=== PATIENT | female | born 1945 | race Caucasian/White ===

== ENCOUNTER 2022-05-15 07:30 | Inpatient (IN) ==
--- NOTE | 2022-05-07 14:50 | Anesthesiology Consultation ---
Date of Service May 07, 2022 Assessment & Plan (1) Encounter for pre-operative examination: - check CBC with diff, BMP and coags STAT am DOS. -medical clearance 02/11/2022: "...preoperative evaluation...mild COPD...just completing a steroid and oral antibiotic regimen for acute bronchitis...recent stress echo...no ischemic changes to wall motion...patient cleared as a low medical risk...follow-up with pulmonary tomorrow with regards to completing the 20 mg burst of steroids that she is on orally...low risk for CARLOS at this point..." -pulmonology 02/12/2022: "...COVID-19 approx. 3 months ago...asthma has been flared up ever since...planned back surgery 02/18/2022...completed prednisone taper and antibiotic course...feeling better...recovered from recent asthma flare up...continue Symbicort and Incruse...spirometry stable today with a mild obstructive ventilatory impairment and AGM does not show an oxygen deficit...not a contraindication for her planned back surgery 02/18/2022...chest ct findings...biapical pleural scarring...concerned about mild cardiomegaly and severe coronary artery calcifications..." Adilia at surgeon's office advised were obtaining cardiac clearance given severe coronary artery calcifications on chest CT. -cardiac pre-op letter 02/12/2022: "...low to moderate risk. NL stress echo 01/23/2022... Case previously discussed with Dr. Maya with updated notes as above including abnormal chest CT and he advised patient was acceptable risk to proceed from anesthesia standpoint. Surgery cancelled 02/18/22 per Adilia at surgeon's office due to patient concerns. - COVID screening: Per hematology supervisor on 05/07/2022: Travel screen negative, no known COVID-19 positive contacts or current COVID-19 related symptoms in past 2 weeks. Pt vaccinated. Surgeon arranging preop COVID testing, scheduled 05/13/2022. Awaiting results. Chart Review Chart Review: Acceptable Risk for Surgery and Patient NOT seen in Pre Admission Testing History Surgery Operation Date: 05/15/22 10:05 Proposed Procedures p L4-L5 Decompression Fusion, Spinal Cord Monitoring - Boby Mcdaniel DO Height/Weight Height: 5 ft Weight: 62.596 kg Allergies Allergy/AdvReac Type Severity Reaction Status Date / Time morphine Allergy Unknown IN ANOTHER Verified 05/07/22 13:22 WORLD cefuroxime [From Ceftin] AdvReac Unknown DIARRHEA , Verified 05/07/22 13:22 NAUSEA moxifloxacin [From Avelox] AdvReac Unknown upset Verified 05/07/22 13:22 stomach/diarrhea Medications Home Medications Medication Instructions Recorded Confirmed Last Taken albuterol sulfate 2.5 mg INHALATION Q4H PRN 02/20/21 05/07/22 Unknown albuterol sulfate 90 mcg/actuation 2 puff INHALATION Q6H PRN 02/20/21 05/07/22 Unknown aerosol inhaler alendronate 70 mg tablet 70 mg PO WK tab 02/20/21 05/07/22 Unknown benzonatate 100 mg capsule 100 mg PO BID PRN 02/20/21 05/07/22 Unknown cholecalciferol (vitamin D3) 25 25 mcg PO QAM 02/20/21 05/07/22 Unknown mcg (1,000 unit) capsule cyanocobalamin (vitamin B-12) 1,000 mcg PO QAM 02/20/21 05/07/22 Unknown 1,000 mcg capsule zzhwwmxjcvsu-cgmhgtnx-apalqm tablet 1 tab PO QAM 02/20/21 05/07/22 Unknown pantoprazole 40 mg tablet,delayed 40 mg PO HS 02/20/21 05/07/22 Unknown release simvastatin 20 mg tablet 20 mg PO HS 02/20/21 05/07/22 Unknown sucralfate 1 gram tablet (Carafate) 1 g PO QID PRN tab 02/20/21 05/07/22 Unknown acetaminophen 500 mg tablet 1,000 mg PO Q6H PRN 02/01/22 05/07/22 Unknown fluticasone fur. 100 mcg-umeclid 1 inh INHALATION QAM 05/07/22 05/07/22 Unknown 62.5 mcg-vilant 25 mcg inhalat.powder (Trelegy Ellipta) Past Medical History Medical History Asthma F/U DR IVA JARAMILLO LAST RESCUE INHALER USE THIS WEEK. Chronic cough. Recently completed steroid taper 2 weeks ago, Rx by pulm. Barretts esophagus HX-IMPROVED GERD (gastroesophageal reflux disease) controlled, stable per pt Hiatal hernia History of claustrophobia History of COVID-19 DX'D 11/21/21 [id number] [facility] [place]-PRODUCTIVE COUGH WITH GREEN PHLEGM, SOME BODY ACHES, FATIGUE-RECOVERED AT [id number] HAS A COUGH PER PT Hyperlipidemia Kidney stones X 3-PASSED ON OWN Late effect of fracture of thoracic vertebra Thoracic back pain Thoracic facet syndrome Thoracic spinal stenosis Past Family History Family History Brother Family history of diabetes mellitus Brother Family history of diabetes mellitus Other No known health problems Past Surgical History Surgical History History of anesthesia reaction SLOW TO WAKE UP/RAPID HEART RATE WITH HYSTERECTOMY History of colonoscopy History of esophagogastroduodenoscopy (EGD) History of hernia repair History of hysterectomy TOTAL History of kyphoplasty T9 Social History Smoking Status: Never smoker Do You Dip or Chew Tobacco: No Hx Alcohol Use: No Hx Substance Use: No Testing Chest X-Ray Date: 02/04/22 FINDINGS: No lines and tubes are seen. Calcified aortic knob is seen. The lungs are clear. No evidence of pleural effusion or pneumothorax. Degenerative changes are seen in the spine and cement arthroplasty is noted in the thoracic spine. IMPRESSION: No acute chest disease Echocardiogram Date: 07/12/21 EF 55% Normal LV sizes Mild mitral regurgitation Mild pulmonic regurgitation Small posterior pericardial effusion Stress Test Date: 01/23/22 Exercise MPHR 99% METS 7 Stress EKG and echo negative for ischemia No regional wall motion abnormalities Other Testing CT chest 02/12/22 Mild cardiomegaly Severe coronary artery calcifications
[~2022-05-15 07:30] MED LIST: ACETAMINOPHEN 500 MG TAB PO SCH; CeleBREX 200 MG CAP PO SCH; GABAPENTIN 300 MG CAP PO SCH; LR 15ML/HR IV SCH; ceFAZolin 1000MG 1,000 MG/7.5 ML SYR IV SCH
[2022-05-15] MEDS ORDERED: MIDAZOLAM HCL 1 MG/ML 2ML VIAL ONE (08:17)
[2022-05-15] MEDS ORDERED: KETAMINE 50 MG/5 ML SYRINGE ONE (08:17)
[2022-05-15] MEDS ORDERED: HYDROmorphone INJ 2 MG/ML SYR/VIAL ONE (08:17)
[2022-05-15 08:24] LABS: Basophils # (auto) 0.04 K/uL (0-0.2); Basophils % (auto) 0.7 %; Eosinophils # (auto) 0.21 K/uL (0-0.50); Eosinophils % (auto) 3.6 %; Hematocrit (blood only) 37.4 % (34.1-44.9); Hemoglobin 12.1 g/dl (12.0-16.0); Immature Granulocytes # (auto) 0.02 K/uL (0.00-0.02); Immature Granulocytes % (auto) 0.3 %; Lymphocytes # (auto) 1.29 K/uL (1.2-3.4); Lymphocytes % (auto) 21.9 %; Mean Corpuscular Hemoglobin 30.3 pg (25.0-34.0); Mean Corpuscular Hgb Conc 32.4 g/dL (32.0-36.0); Mean Corpuscular Volume 93.7 fL (80.0-100.0); Mean Platelet Volume 9.1 fL (9.4-12.3); Monocytes # (auto) 0.45 K/uL (0.24-0.82); Monocytes % (auto) 7.6 %; Neutrophils # (auto) 3.89 K/uL (1.4-6.5); Neutrophils % (auto) 65.9 %; Platelet Count 182 K/uL (130-400); RDW Coefficient of Variation 13.7 % (11.5-14.5); RDW Standard Deviation 47.2 fL (36.4-46.3); Red Blood Count 3.99 M/uL (3.93-5.22)
[2022-05-15 08:33] LABS: Partial Thromboplastin Ratio 0.9; Partial Thromboplastin Time 25.6 Seconds (21.0-31.0); Prothrombin Time 10.3 Seconds (9.0-12.0)
[2022-05-15 09:10] LABS: BUN Creatinine Ratio 10.4 (10-20); Calcium 8.7 mg/dl (8.5-10.1); Creatinine Clr Calc Pharmacy 26.2 ml/min; Est GFR (African American) 39.9 ml/min; Est GFR (Non-African American) 34.5 ml/min; Potassium 3.8 mmol/L (3.5-5.1)
[2022-05-15] MEDS ORDERED: ceFAZolin 330 MG/ML 1 GM VIAL ONE (09:19)
[2022-05-15] MEDS ORDERED: BUPIVACAINE/EPINEPHRINE 0.25% 1:200,000 30 ML VIAL ONE (09:19)
--- NOTE | 2022-05-15 09:20 | History & Physical Bridge Note ---
Date of Service May 15, 2022 History & Physical Bridge Note I have examined the patient, reviewed the History & Physical and in the interval since the performance of the History & Physical I have noted the following changes of clinical significance: no changes noted
--- NOTE | 2022-05-15 09:21 | History & Physical Report ---
Date of Service May 15, 2022 Assessment & Plan (1) Neurogenic claudication due to lumbar spinal stenosis: Plan: L4-5 decompression and fusion History of Present Illness Chief Complaint: Back and leg pain Primary Care Provider: Yonis Cornell This is a 68-year-old female presents to clinic with back and leg pain. Failing course of nonoperative care she is here for surgical invention. Allergies Allergy/AdvReac Type Severity Reaction Status Date / Time morphine Allergy Unknown IN ANOTHER Verified 05/15/22 07:48 WORLD cefuroxime [From Ceftin] AdvReac Unknown DIARRHEA , Verified 05/15/22 07:48 NAUSEA moxifloxacin [From Avelox] AdvReac Unknown upset Verified 05/15/22 07:48 stomach/diarrhea Home Medications Medication Instructions Recorded Confirmed Type albuterol sulfate 2.5 mg inhalation Q4H PRN Wheezing 02/20/21 05/15/22 History albuterol sulfate 90 mcg/actuation 2 puff inhalation Q6H PRN Wheezing 02/20/21 05/07/22 History aerosol inhaler alendronate 70 mg tablet 70 mg PO WK 02/20/21 05/15/22 History benzonatate 100 mg capsule 100 mg PO BID PRN Cough 02/20/21 05/15/22 History cholecalciferol (vitamin D3) 25 25 mcg PO QAM 02/20/21 05/15/22 History mcg (1,000 unit) capsule cyanocobalamin (vitamin B-12) 1,000 mcg PO QAM 02/20/21 05/15/22 History 1,000 mcg capsule fxprfmdxdlmh-afnysbdn-bvgymd tablet 1 tab PO QAM 02/20/21 05/15/22 History pantoprazole 40 mg tablet,delayed 40 mg PO HS 02/20/21 05/15/22 History release simvastatin 20 mg tablet 20 mg PO HS 02/20/21 05/15/22 History sucralfate 1 gram tablet (Carafate) 1 g PO QID PRN Abdominal Pain 02/20/21 05/07/22 History acetaminophen 500 mg tablet 1,000 mg PO Q6H PRN Pain 02/01/22 05/15/22 History fluticasone fur. 100 mcg-umeclid 1 inh inhalation QAM 05/07/22 05/15/22 History 62.5 mcg-vilant 25 mcg inhalat.powder (Trelegy Ellipta) Past Med/Surg History Medical History Asthma F/U DR IVA JARAMILLO LAST RESCUE INHALER USE THIS WEEK. Chronic cough. Recently completed steroid taper 2 weeks ago, Rx by pulm. Barretts esophagus HX-IMPROVED GERD (gastroesophageal reflux disease) controlled, stable per pt Hiatal hernia History of claustrophobia History of COVID-19 DX'D 11/21/21 [id number] [facility] [place]-PRODUCTIVE COUGH WITH GREEN PHLEGM, SOME BODY ACHES, FATIGUE-RECOVERED AT [id number] HAS A COUGH PER PT Hyperlipidemia Kidney stones X 3-PASSED ON OWN Late effect of fracture of thoracic vertebra Thoracic back pain Thoracic facet syndrome Thoracic spinal stenosis Surgical History History of anesthesia reaction SLOW TO WAKE UP/RAPID HEART RATE WITH HYSTERECTOMY History of colonoscopy History of esophagogastroduodenoscopy (EGD) History of hernia repair History of hysterectomy TOTAL History of kyphoplasty T9 Family History Brother Family history of diabetes mellitus Brother Family history of diabetes mellitus Other No known health problems Social History (Updated 05/07/22 @ 13:41 by Stephania Strong RN) Smoking Status: Never smoker Second Hand Exposure: No; Do You Dip or Chew Tobacco: No; Hx Alcohol Use: No Hx Substance Use: No Preferred Language: Nigerien Communication Ability: Effective Tobacco Drier Operator Required: No Beliefs That Will Affect Care: None Current Living Situation: Family Current Living Situation Comment: 4 GRANDCHILDREN LIVE WITH PT current occupational status: retired Other Information That Helps Us Care for You: No Feels Safe at Home: Yes Safety Concerns: Feels Safe At This Time Assistive Devices: Brace/Splint/Immobilizer, Denture - Upper, Denture - Lower and Glasses Assistive Devices Comment: BACK BRACE PRN Physical Exam Physical Exam: Patient is alert and oriented Heart regular rhythm Lungs clear Results & Data Results & Data ([facility]) Vital Signs (Past 12 Hours) Vital Signs Temp Pulse Resp BP Pulse Ox O2 Del Method 05/15/22 07:52 36.7 C 83 20 136/56 L 100 Room Air
[2022-05-15] MEDS ORDERED: PROMETHAZINE HCL 6.25 MG in SODIUM CHLORIDE 0.9% 50 ML IV PRN (09:30)
[2022-05-15] MEDS ORDERED: HYDROmorphone INJ 1 MG/ML SYRINGE IV PRN ×2 (09:30→13:35)
[2022-05-15] MEDS ORDERED: ONDANSETRON INJ 2 MG/ML 2 ML VIAL IV PRN ×2 (09:30→13:35)
[2022-05-15] MEDS ORDERED: ATROPINE SULFATE 0.1 MG/ML 10ML SYR IV PRN (09:30)
[2022-05-15] MEDS ORDERED: PROPOFOL IV EMULSION 10 MG/ML 20 ML VIAL IV ONE (10:15)
[2022-05-15] MEDS ORDERED: ONDANSETRON INJ 2 MG/ML 2 ML VIAL ONE (10:15)
[2022-05-15] MEDS ORDERED: DEXAMETHASONE SOD INJ 4 MG/ML VIAL ONE (10:15)
[2022-05-15] MEDS ORDERED: ROCURONIUM BROMIDE 10 MG/ML 5 ML VIAL IV ONE (10:15)
[2022-05-15] MEDS ORDERED: GLYCOPYRROLATE 0.2 MG/ML VIAL ONE (10:15)
[2022-05-15] MEDS ORDERED: LIDOCAINE 2% MPF LOCAL 5 ML VIAL INFIL ONE (10:15)
[2022-05-15] MEDS ORDERED: KETOROLAC 30 MG/ML VIAL ONE (10:49)
[2022-05-15] MEDS ORDERED: NEOSTIGMINE METHYLSULFATE 1 MG/ML 10ML VIAL ONE (10:53)
[2022-05-15] MEDS ORDERED: FLOSEAL HEMOSTATIC MATRIX 10ML TOP ONE (11:03)
--- NOTE | 2022-05-15 11:05 | Operative Report ---
Post Operative Report Pre & Post Diagnosis Operation Date: 05/15/22 09:35 Pre-Op Diagnosis: Spinal stenosis with spondylolisthesis and neurogenic claudication Post-Op Diagnosis: Same I identified the patient and participated in the time-out.: Yes Procedure Operation Date: 05/15/22 09:35 Actual Procedures #1 lumbar decompression bilateral medial facetectomies and foraminotomies L3-L4 L4-5. #2 posterior spinal fusion L4-5 per #3 placement posterior instrumentation L4-5. #4 interbody fusion L4-5. #5 placement of Spira 13 x 22 mm cage at L4-L5. #6 placement locally harvested morselized autograft in the posterior gutters. #7 placement of I factor and interbody space and infuse collagen sponge by master graft in the posterior lateral gutters. Surgeon Boby Mcdaniel, Gas Compressor Operator Domitila Verma Estimated Blood Loss 50 Findings Consistent with Post-Op Diagnosis Specimens None Indications This is a 77-year-old female who presents with above-mentioned diagnosis after failed course of nonoperative care she is here for surgical invention. Description of Procedure Patient is met with identified informed consent obtained. Patient was then taken to the operative suite underwent ablation placed in a prone position the Juan table top Mark frame. All bony prominences well-padded eyes inspected to ensure no external pressure placed upon them. This point the lumbar spine was prepped and draped no sterile fashion. Sharp dissection with assistance of Bovie cautery was formed down to and exposing the lamina transverse processes of L4-L5 bilaterally. From caudal to cephalad fashion complete laminectomy L4 partial laminectomy of L3 was performed including bilateral medial facetectomies and foraminotomies addressing severe spinal stenosis. Pedicle screws were then placed in L4-L5 bilaterally with assistance of fluoroscopy and appropriately sized david placed. By way of entrance foraminal approach and right a complete discectomy of L4-5 was performed endplates curetted to subcortical bleeding bone and a 13 x 22 mm spiral cage with I factor tapped in position. The rods then compressed locked in final position bilaterally. The transverse processes of L4-5 burred to subcortical bleeding bone. Infuse collagen sponge master graft local autograft was placed in posterior gutters. 15 round ARIK drain inserted. The incision was then closed with 1 Vicryl the fascia 2-0 Vicryl subcutaneously and 4 Monocryl for final skin closure. Steri-Strip sterile dressings placed. Patient waken taken PACU stable condition. Please note spinal cord monitoring was utilized at the procedure no changes noted. Lastly Domitila Verma was present out the entire procedure involved the patient positioning complex portions of the surgery and fascial closure. I attest to the content of the Intraoperative Record and any orders documented therein. Any exceptions are noted below.
--- NOTE | 2022-05-15 11:41 | Fluoroscopy Report ---
FL lumbar spine 2-3V CLINICAL HISTORY: L4-L5 DECOMPRESSION TECHNIQUE: 2 views were obtained with the C-arm in the OR with the above procedure. Total fluoroscopy time was 16.4 seconds. Total skin dose was 7.0 mGy. Comparison: None available at the time of this dictation. FINDINGS/IMPRESSION: Intraoperative images were obtained of L4-L5 decompression and fusion. Please correlate with intraoperative fluoroscopy and operative report. ACT 112: Negative or not required by law. Electronically signed by: Mike Gonzalez M.D. 05/15/2022 11:39 AM
--- NOTE | 2022-05-15 13:04 | Anesthesiology Progress Note ---
Date of Service May 15, 2022 Anesthesia Post Procedure Vital Signs Vital Signs: Temp Pulse Pulse Resp BP Pulse Ox O2 Del Method 05/15/22 12:55 67 10 L 137/52 L 100 Nasal Cannula 05/15/22 11:35 71 11 L 101/40 L 99 Oxymask 05/15/22 12:45 70 8 L 140/53 L 99 Nasal Cannula 05/15/22 12:35 36.5 C 76 12 144/62 H 98 Nasal Cannula 05/15/22 12:25 67 16 156/67 H 97 Nasal Cannula 05/15/22 12:15 79 15 153/63 H 100 Oxymask 05/15/22 12:05 81 12 146/78 H 98 Oxymask 05/15/22 11:55 36.5 C 70 11 L 109/48 L 100 Oxymask 05/15/22 11:45 70 12 107/48 L 100 Oxymask 05/15/22 11:25 70 12 99/46 L 99 Oxymask 05/15/22 11:19 36.3 C L 76 23 111/41 L 99 Oxymask 05/15/22 07:52 36.7 C 83 20 136/56 L 100 Room Air O2 Flow Rate 05/15/22 12:55 2 05/15/22 11:35 8 05/15/22 12:45 2 05/15/22 12:35 2 05/15/22 12:25 2 05/15/22 12:15 5 05/15/22 12:05 5 05/15/22 11:55 8 05/15/22 11:45 8 05/15/22 11:25 8 05/15/22 11:19 8 05/15/22 07:52 Pain Intensity Bilateral Back: Pain Intensity: 7 Transfer of Care Handoff Completed per policy Notes Mental Status: alert / awake / arousable Patient Amnestic to Procedure: Yes Nausea / Vomiting: adequately controlled Pain: adequately controlled Airway Patency, RR, SpO2: stable & adequate BP & HR: stable & adequate Hydration State: stable & adequate Anesthetic Complications: no major complications apparent
[2022-05-15] MEDS ORDERED: ALBUTEROL HFA 8 GM INHALER INH PRN (13:35)
[2022-05-15] MEDS ORDERED: traMADol HCL 50 MG TABLET PO PRN (13:35)
[2022-05-15] MEDS ORDERED: LORazepam 0.5 MG in SYRINGE 0.25 ML IV PRN (13:35)
[2022-05-15] MEDS ORDERED: LORazepam 0.5 MG TAB PO PRN (13:35)
[2022-05-15] MEDS ORDERED: FAMOTIDINE 20 MG TAB PO PRN (13:35)
[2022-05-15] MEDS ORDERED: NALOXONE HCL 0.4 MG/1 ML VIAL/CARP IV PRN (13:35)
[2022-05-15] MEDS ORDERED: SUCRALFATE 1 GM TAB PO PRN (13:35)
[2022-05-15] MEDS ORDERED: MAGNESIUM HYDROXIDE SUSP 30 ML UDC PO PRN (13:35)
[2022-05-15] MEDS ORDERED: bisacodyL 10 MG SUPP PR PRN (13:35)
[2022-05-15] MEDS ORDERED: hydrOXYzine HCl 25 MG TAB PO PRN (13:35)
[2022-05-15] MEDS ORDERED: BENZONATATE 100 MG CAPSULE PO PRN (13:35)
[2022-05-15] MEDS ORDERED: SOD PHOSPHATE/SOD BIPHOSPHATE ENEMA 132 ML BTL PR PRN (13:35)
[2022-05-15] MEDS ORDERED: ONDANSETRON 4 MG OD TAB PO PRN (13:35)
[2022-05-15] MEDS ORDERED: ALUMINUM/MAGNESIUM SUSP 30 ML UDC PO PRN (13:35)
[2022-05-15] MEDS ORDERED: HYDROmorphone INJ 0.5 MG/0.5 ML SYR IV PRN (13:35)
[2022-05-15] MEDS ORDERED: PROMETHAZINE HCL 12.5 MG in SODIUM CHLORIDE 0.9% 50 ML IV PRN (13:35)
[2022-05-15] MEDS ORDERED: diphenhydrAMINE Capsule 25 MG CAP PO PRN (13:35)
[2022-05-15] MEDS ORDERED: METOCLOPRAMIDE HCL INJ 5 MG/ML 2 ML VIAL IV PRN (13:35)
[2022-05-15] MEDS ORDERED: oxyCODONE HCL IR 5 MG TAB (IMMEDIATE RELEASE) PO PRN (13:35)
--- NOTE | 2022-05-15 13:49 | Consultation ---
Date of Consultation May 15, 2022 Assessment & Plan (1) Status post lumbar surgery: (2) Neurogenic claudication due to lumbar spinal stenosis: Post op day# 0 S/P L3-L5 decompression, L4-L5 fusion by Dr Violeta IRBY#50ml -pain management per ortho -wound management per ortho -PT/OT as appropriate -DVT prophylaxis per ortho -incentive spirometry -monitor H&H for acute blood loss anemia; pre-op Hgb: 12 (3) Asthma: No acute exacerbation -Follows with pulmonology in [place] -Continue home inhalers -Albuterol neb prn (4) Hyperlipidemia: -Continue simvastatin (5) Barretts esophagus: (6) GERD (gastroesophageal reflux disease): -Continue PPI (7) Renal insufficiency: 05/15/22 pre-op Cr: 1.44. Unknown prior baseline -Monitor renal functions, avoid nephrotoxic agents when possible DVT Prophylaxis -SCDs per ortho Disposition per primary service Follows with Dr Yonis Cornell for routine care Pt was seen and care coordinated with Dr Livingston. See addendum Thank you for this consultation. We will follow the patient with you during their hospital stay. You can reach a member of the [facility]ist Team 19/05 via [employer] Supervising Physician Co-Signing Physician Notes This is an attending cosign note for full reports and documentation please see the full dictation by JANAY following is a synopsis. Patient is S/P L3-L5 decompression, L4-L5 fusion seen at bedside with patient's daughter. Patient alert oriented somnolent fully arousable. Answering questions appropriately. Head atraumatic chest largely clear abdomen soft mildly obese. No similar current complaints of pain mildly nauseous. Received antiemetic. Pain control DVT prophylaxis as per the primary team. Continue home medication for asthma. History of Present Illness Requesting Physician: Dr Mcdaniel Reason for Consultation: Post op medical management Attending Physician: Boby Mcdaniel, DO History of Present Illness Patient is 77 y/o F with PMH asthma, HLD, Diego's esphogus, GERD seen in medical consultation s/p L3-L5 decompression and L4-L5 fusion today by Dr Mcdaniel. Post op patient still sleepy and complaining of nausea. Just medicated with anti-emetic. Denies vomiting or abdominal pain. Denies any back pain or extremity pain currently. Typically uses albuterol a couple of times a month. Reports chronic cough. Does not use oxygen or CPAP. Denies fever/chills, diaphoresis, diarrhea, constipation, MCLEAN, dizziness, syncope, vision changes, neck pain, CP, SOB, sore throat, choking, otalgia, rhinorrhea, abdominal pain, paresthesias, weakness, extremity edema, rashes, urinary symptoms. Allergies Allergy/AdvReac Type Severity Reaction Status Date / Time morphine Allergy Unknown IN ANOTHER Verified 05/15/22 07:48 WORLD cefuroxime [From Ceftin] AdvReac Unknown DIARRHEA , Verified 05/15/22 07:48 NAUSEA moxifloxacin [From Avelox] AdvReac Unknown upset Verified 05/15/22 07:48 stomach/diarrhea Home Medications Medication Instructions Recorded Confirmed Type albuterol sulfate 2.5 mg inhalation Q4H PRN Wheezing 02/20/21 05/15/22 History albuterol sulfate 90 mcg/actuation 2 puff inhalation Q6H PRN Wheezing 02/20/21 05/15/22 History aerosol inhaler alendronate 70 mg tablet 70 mg PO WK 02/20/21 05/15/22 History benzonatate 100 mg capsule 100 mg PO BID PRN Cough 02/20/21 05/15/22 History cholecalciferol (vitamin D3) 25 25 mcg PO QAM 02/20/21 05/15/22 History mcg (1,000 unit) capsule cyanocobalamin (vitamin B-12) 1,000 mcg PO QAM 02/20/21 05/15/22 History 1,000 mcg capsule tciojmyeavyf-gezbvqza-xdyske tablet 1 tab PO QAM 02/20/21 05/15/22 History pantoprazole 40 mg tablet,delayed 40 mg PO HS 02/20/21 05/15/22 History release simvastatin 20 mg tablet 20 mg PO HS 02/20/21 05/15/22 History sucralfate 1 gram tablet (Carafate) 1 g PO QID PRN Abdominal Pain 02/20/21 05/15/22 History acetaminophen 500 mg tablet 1,000 mg PO Q6H PRN Pain 02/01/22 05/15/22 History fluticasone fur. 100 mcg-umeclid 1 inh inhalation QAM 05/07/22 05/15/22 History 62.5 mcg-vilant 25 mcg inhalat.powder (Trelegy Ellipta) Patient History Medical History (Updated 05/15/22 @ 14:28 by Fiordaliza Garcia PA-C) Asthma F/U DR IVA JARAMILLO LAST RESCUE INHALER USE THIS WEEK. Chronic cough. Recently completed steroid taper 2 weeks ago, Rx by pulm. Barretts esophagus HX-IMPROVED GERD (gastroesophageal reflux disease) controlled, stable per pt Hiatal hernia History of claustrophobia History of COVID-19 DX'D 11/21/21 [id number] CARE [place]-PRODUCTIVE COUGH WITH GREEN PHLEGM, SOME BODY ACHES, FATIGUE-RECOVERED AT [id number] HAS A COUGH PER PT Hyperlipidemia Kidney stones X 3-PASSED ON OWN Late effect of fracture of thoracic vertebra Thoracic back pain Thoracic facet syndrome Thoracic spinal stenosis Surgical History (Updated 05/15/22 @ 14:28 by Fiordaliza Garcia PA-C) History of anesthesia reaction SLOW TO WAKE UP/RAPID HEART RATE WITH HYSTERECTOMY History of colonoscopy History of esophagogastroduodenoscopy (EGD) History of hernia repair History of hysterectomy TOTAL History of kyphoplasty T9 Family History Brother Family history of diabetes mellitus Brother Family history of diabetes mellitus Other No known health problems Social History Smoking Status: Never smoker Second Hand Exposure: No; Do You Dip or Chew Tobacco: No; Hx Alcohol Use: No Hx Substance Use: No Preferred Language: Argentine Communication Ability: Effective Camp Nurse Required: No Beliefs That Will Affect Care: None Current Living Situation: Family Current Living Situation Comment: 4 GRANDCHILDREN LIVE WITH PT current occupational status: retired Other Information That Helps Us Care for You: No Feels Safe at Home: Yes Safety Concerns: Feels Safe At This Time Assistive Devices: Brace/Splint/Immobilizer, Denture - Upper, Denture - Lower and Glasses Assistive Devices Comment: BACK BRACE PRN Review of Systems Review of Systems: All systems reviewed & are unremarkable except as noted in HPI & below Physical Exam Physical Exam: General: no distress, WDWN Head: normocephalic, atraumatic Eyes: conjunctiva non-injected, anicteric ENT: normal inspection external ears, nose, mucous membranes moist Neck: supple, trachea midline Lungs: clear, no respiratory distress, no wheezing/rhonchi/rales CV: RRR, no murmur, no pretibial edema Abd: normal BS, soft, non-tender Back: surgical dressing dry intact, ARIK drain in place with small amount of serosanguineous drainage Ext: no cyanosis, no calf tenderness; pedal pushes and pulls intact bilaterally, sensation to light touch intact, distal pulses intact Neuro: Drowsy, awakens to voice, oriented x 3, no focal deficits noted, normal affect Skin: warm, dry Results & Data ([facility]) Vital Signs (Past 12 Hours) Vital Signs Temp Pulse Pulse Resp BP Pulse Ox O2 Del Method 05/15/22 13:05 36.4 C L 63 10 L 147/61 H 98 Nasal Cannula 05/15/22 12:55 67 10 L 137/52 L 100 Nasal Cannula 05/15/22 11:35 71 11 L 101/40 L 99 Oxymask 05/15/22 12:45 70 8 L 140/53 L 99 Nasal Cannula 05/15/22 12:35 36.5 C 76 12 144/62 H 98 Nasal Cannula 05/15/22 12:25 67 16 156/67 H 97 Nasal Cannula 05/15/22 12:15 79 15 153/63 H 100 Oxymask 05/15/22 12:05 81 12 146/78 H 98 Oxymask 05/15/22 11:55 36.5 C 70 11 L 109/48 L 100 Oxymask 05/15/22 11:45 70 12 107/48 L 100 Oxymask 05/15/22 11:25 70 12 99/46 L 99 Oxymask 05/15/22 11:19 36.3 C L 76 23 111/41 L 99 Oxymask 05/15/22 07:52 36.7 C 83 20 136/56 L 100 Room Air O2 Flow Rate 05/15/22 13:05 2 05/15/22 12:55 2 05/15/22 11:35 8 05/15/22 12:45 2 05/15/22 12:35 2 05/15/22 12:25 2 05/15/22 12:15 5 05/15/22 12:05 5 05/15/22 11:55 8 05/15/22 11:45 8 05/15/22 11:25 8 05/15/22 11:19 8 05/15/22 07:52 Laboratory Results Short CBC 05/15/22 Range/Units 08:06 WBC 5.90 (4.8-10.8) K/ul Hgb 12.1 (12.0-16.0) g/dl Hct 37.4 (34.1-44.9) % Plt Count 182 (130-400) K/uL [facility] 05/15/22 08:06 Sodium 140 Potassium 3.8 Chloride 107 Carbon Dioxide 25 BUN 15 Creatinine 1.44 H Glucose 105 H Calcium 8.7
[2022-05-15] MEDS: SODIUM CHLORIDE 0.9% 1000ML 1,000 ML IV SCH (14:15)
[2022-05-15] MEDS ORDERED: ALBUTEROL 0.083% NEBU SOLN 3 ML VIAL NEB PRN (14:30)
[2022-05-15] MEDS ORDERED: ACETAMINOPHEN 1,000 MG/100 ML VIAL IV PRN (16:00)
--- NOTE | 2022-05-15 16:47 | Electrocardiogram Report ---
Test Reason : Blood Pressure : / mmHG Vent. Rate : 083 BPM Atrial Rate : 083 BPM P-R Int : 164 ms QRS Dur : 074 ms QT Int : 458 ms P-R-T Axes : 035 009 -08 degrees QTc Int : 538 ms Poor data quality, interpretation may be adversely affected Normal sinus rhythm Low voltage QRS Prolonged QT Abnormal ECG No previous ECGs available Confirmed by Gus Stein ([id number]) on 05/15/2022 4:47:35 PM Referred By: Boby Mcdaniel Confirmed By:Gus Stein
[2022-05-15] MEDS: CLINDAMYCIN 600 MG in DEXTROSE 5% 50 ML IV SCH (17:20)
[2022-05-15] MEDS: DOCUSATE SODIUM/SENNA 50/8.6MG TAB PO SCH (20:17)
[2022-05-15] MEDS: PANTOprazole 40 MG TAB PO SCH (20:17)
[2022-05-15] MEDS: SIMVASTATIN 20 MG TAB PO SCH (20:17)
[2022-05-16] MEDS: SODIUM CHLORIDE 0.9% 1000ML 1,000 ML IV SCH (00:18)
[2022-05-16] MEDS: CLINDAMYCIN 600 MG in DEXTROSE 5% 50 ML IV SCH (02:25)
[2022-05-16] MEDS: POLYETHYLENE (MIRALAX) 17 GM PACK PO SCH ×2 (06:02→12:37)
[2022-05-16] MEDS: UMECLIDINIUM/VILANTEROL 62.5/25MCG 7 PUFFS/INHALER INH SCH (08:31)
[2022-05-16] MEDS: FLUTICASONE FUROATE 100MCG 14 PUFFS/INHALER INH SCH (08:31)
[2022-05-16] MEDS: CYANOCOBALAMIN (B-12) 500 MCG TABLET PO SCH (08:32)
[2022-05-16] MEDS: CHOLECALCIFEROL 1,000 UNITS 25 MCG TAB PO SCH (08:32)
[2022-05-16] MEDS: CEROVITE ADV FORMULA TAB PO SCH (08:32)
[2022-05-16] MEDS: dexAMETHasone 6 MG in SYRINGE 0 ML IV SCH (08:32)
[2022-05-16] MEDS ORDERED: NON-FORMULARY MEDICATION (Fluticasone-Umeclidin-Vilanter [Trelegy Ellipta] 100-62.5-25 mcg INH SCH (09:00)
--- NOTE | 2022-05-16 09:19 | Orthopedic Progress Note ---
Date of Service May 16, 2022 Assessment & Plan (1) Neurogenic claudication due to lumbar spinal stenosis: Plan: We will begin physical therapy today monitor her ARIK output hopefully discharge home in the next few days. Admission and Anticipated Discharge Date Admission Date: May 15, 2022 Subjective Patient's back pain is controlled leg symptoms markedly improved Physical Exam Physical Exam: Patient is in bed. She is comfortable. Is good strength testing. Results & Data ([facility]) Vital Signs (Past 12 Hours) Vital Signs Temp Pulse Resp BP Pulse Ox O2 Del Method O2 Flow Rate 05/16/22 07:49 36.6 C 72 18 122/62 97 Room Air 05/16/22 04:00 36.4 C L 67 16 135/73 100 Nasal Cannula 2 05/15/22 23:38 52 L 05/15/22 22:48 36.4 C L 48 L 16 133/80 100 Room Air
[2022-05-16 09:41] LABS: Basophils # (auto) 0.01 K/uL (0-0.2); Basophils % (auto) 0.1 %; Eosinophils # (auto) 0.01 K/uL (0-0.50); Eosinophils % (auto) 0.1 %; Hematocrit (blood only) 33.4 % (34.1-44.9); Hemoglobin 10.7 g/dl (12.0-16.0); Immature Granulocytes # (auto) 0.04 K/uL (0.00-0.02); Immature Granulocytes % (auto) 0.5 %; Lymphocytes # (auto) 0.75 K/uL (1.2-3.4); Mean Corpuscular Hemoglobin 30.3 pg (25.0-34.0); Mean Corpuscular Volume 94.6 fL (80.0-100.0); Mean Platelet Volume 9.8 fL (9.4-12.3); Monocytes # (auto) 0.42 K/uL (0.24-0.82); Neutrophils # (auto) 7.09 K/uL (1.4-6.5); Neutrophils % (auto) 85.3 %; Platelet Count 163 K/uL (130-400); RDW Coefficient of Variation 13.4 % (11.5-14.5); Red Blood Count 3.53 M/uL (3.93-5.22); White Blood Count 8.32 K/ul (4.8-10.8)
[2022-05-16 10:17] LABS: BUN Creatinine Ratio 15.1 (10-20); Calcium 7.8 mg/dl (8.5-10.1); Creatinine Clr Calc Pharmacy 27.1 ml/min; Est GFR (African American) 41.7 ml/min; Potassium 4.5 mmol/L (3.5-5.1)
[2022-05-16] MEDS: ACETAMINOPHEN 500 MG TAB PO PRN (16:28)
--- NOTE | 2022-05-16 18:27 | Hospitalist Progress Note ---
Date of Service May 16, 2022 Assessment & Plan (1) Status post lumbar surgery: (2) Neurogenic claudication due to lumbar spinal stenosis: Plan: Post op day# 1 S/P L3-L5 decompression, L4-L5 fusion by Dr Mcdaniel -pain management per ortho -wound management per ortho -PT/OT as appropriate -DVT prophylaxis per ortho -incentive spirometry Acute blood loss anemia, postop vs. dilutional -pre-op Hgb: 12, now 10.7 -Expected, no need for blood transfusion -monitor H&H (3) Asthma: Plan: No acute exacerbation -Follows with pulmonology in [place] -Continue home inhalers -Albuterol neb prn (4) Hyperlipidemia: Plan: -Continue simvastatin (5) Barretts esophagus: (6) GERD (gastroesophageal reflux disease): Plan: -Continue PPI (7) Renal insufficiency: Plan: 05/15/22 pre-op Cr: 1.44. Unknown prior baseline -Monitor renal functions, avoid nephrotoxic agents when possible DVT Prophylaxis -SCDs per ortho Disposition per primary service Follows with Dr Yonis Cornell for routine care Thank you for this consultation. We will follow the patient with you during their hospital stay. You can reach a member of the [facility] 19/05 via [employer] Admission and Anticipated Discharge Date Admission Date: May 15, 2022 Subjective Patient seen s/p spinal surgery Currently laying in bed, in no acute distress Denies any fevers, chills, chest pain, shortness of breath, abdominal pain, nausea or vomiting Reports she has been walking in hallway without much difficulty Catheter was removed, and she has been voiding without difficulty. She also had a bowel movement Patient's daughter at the bedside Review of Systems Review of Systems: All systems reviewed & are unremarkable except as noted in Subjective Physical Exam Physical Exam: General: no distress, WDWN Head: normocephalic, atraumatic Eyes: conjunctiva non-injected, anicteric ENT: normal inspection external ears, nose, mucous membranes moist Neck: supple, trachea midline Lungs: clear, no respiratory distress, no wheezing/rhonchi/rales CV: RRR, no murmur, no pretibial edema Abd: normal BS, soft, non-tender Back: surgical dressing dry intact Ext: no calf tenderness; pedal pushes and pulls intact bilaterally, sensation to light touch intact, distal pulses intact Neuro: alert oriented x 3, no focal deficits noted, normal affect Skin: warm, dry Results & Data Results & Data ([facility]) Vital Signs (Past 12 Hours) Vital Signs Temp Pulse Resp BP Pulse Ox O2 Del Method 05/16/22 16:24 36.8 C 69 18 137/68 96 Room Air 05/16/22 13:14 36.8 C 83 18 126/75 97 Room Air 05/16/22 07:49 36.6 C 72 18 122/62 97 Room Air Laboratory Results 05/16/22 05/16/22 Range/Units 08:48 08:48 WBC 8.32 (4.8-10.8) K/ul RBC 3.53 L (3.93-5.22) M/uL Hgb 10.7 L (12.0-16.0) g/dl Hct 33.4 L (34.1-44.9) % MCV 94.6 (80.0-100.0) fL MCH 30.3 (25.0-34.0) pg MCHC 32.0 (32.0-36.0) g/dL RDW Std Deviation 46.0 (36.4-46.3) fL RDW Coeff of Moon 13.4 (11.5-14.5) % Plt Count 163 (130-400) K/uL MPV 9.8 (9.4-12.3) fL Immature Gran % (Auto) 0.5 % Neut % (Auto) 85.3 % Lymph % (Auto) 9.0 % Mclean % (Auto) 5.0 % Eos % (Auto) 0.1 % Baso % (Auto) 0.1 % Neut # (Auto) 7.09 H (1.4-6.5) K/uL Lymph # (Auto) 0.75 L (1.2-3.4) K/uL Mclean # (Auto) 0.42 (0.24-0.82) K/uL Eos # (Auto) 0.01 (0-0.50) K/uL Baso # (Auto) 0.01 (0-0.2) K/uL Immature Gran # (Auto) 0.04 H (0.00-0.02) K/uL Sodium 139 (136-145) mmol/L Potassium 4.5 (3.5-5.1) mmol/L Chloride 109 H (98-107) mmol/L Carbon Dioxide 22 (21-32) mmol/L Anion Gap 8 (3-11) BUN 21 (6-23) mg/dl Creatinine 1.39 H (0.6-1.2) mg/dl Est Cr Clr Drug Dosing 27.1 ml/min Est GFR ( Amer) 41.7 ml/min Est GFR (Non-Af Amer) 36.0 ml/min BUN/Creatinine Ratio 15.1 (10-20) Glucose 144 H (70-99(Fasting)) mg/dl Calcium 7.8 L (8.5-10.1) mg/dl Medications Administered Current Inpatient Medications Acetaminophen (Acetaminophen 500 Mg Tab) 1,000 mg PO Q8H PRN PRN Reason: MILD Pain Scale 1,2,3 & Pre PT Stop: 06/14/22 15:59 Last Admin: 05/16/22 16:28 Dose: 1,000 mg Al Hydrox/Mg Hydrox/Simethicone (Aluminum/Magnesium Susp 30 Ml Udc) 30 ml PO Q6H PRN PRN Reason: Dyspepsia Stop: 06/14/22 13:34 Albuterol (Albuterol Hfa 8 Gm Inhaler) 2 puffs INH Q6H PRN PRN Reason: Wheezing Stop: 06/14/22 13:34 Albuterol (Albuterol 0.083% Nebu Soln 3 Ml Vial) 2.5 mg NEB Q6R PRN; Protocol PRN Reason: Shortness Of Breath Or Wheezin Stop: 06/14/22 14:29 Benzonatate (Benzonatate 100 Mg Capsule) 100 mg PO BID PRN PRN Reason: Cough Stop: 06/14/22 13:34 Bisacodyl (Bisacodyl 10 Mg Supp) 10 mg DE DAILY PRN PRN Reason: Constipation Stop: 06/14/22 13:34 Cyanocobalamin (Cyanocobalamin (B-12) 500 Mcg Tablet) 1,000 mcg PO QAM KANU Stop: 06/15/22 08:59 Last Admin: 05/16/22 08:32 Dose: 1,000 mcg Diphenhydramine HCl (Diphenhydramine Capsule 25 Mg Cap) 25 mg PO Q6H PRN PRN Reason: Allergic Rhinitis/Insomnia Stop: 06/14/22 13:34 Famotidine (Famotidine 20 Mg Tab) 20 mg PO Q12H PRN PRN Reason: Dyspepsia Stop: 06/14/22 13:34 Fluticasone Furoate (Fluticasone Furoate 100mcg 14 Puffs/Inhaler) 1 puffs INH QAM KANU Stop: 06/15/22 08:59 Last Admin: 05/16/22 08:31 Dose: 1 puffs Hydromorphone HCl (Hydromorphone Inj 0.5 Mg/0.5 Ml Syr) 0.5 mg IV Q3H PRN PRN Reason: MODERATE Pain (Scale 4,5,6) & Pre PT Stop: 05/29/22 13:34 Hydromorphone HCl (Hydromorphone Inj 1 Mg/Ml Syringe) 1 mg IV Q3H PRN PRN Reason: SEVERE Pain (Scale 7,8,9,10) Stop: 05/29/22 13:34 Hydroxyzine HCl (Hydroxyzine Hcl 25 Mg Tab) 25 mg PO Q8H PRN PRN Reason: Anxiety Stop: 06/14/22 13:34 Promethazine HCl 12.5 mg/ (Sodium Chloride) 50.5 mls @ 202 mls/hr IV Q6H PRN PRN Reason: Nausea &/or Vomiting Stop: 06/14/22 13:34 Last Infusion: 05/15/22 17:01 Dose: Infused Lorazepam 0.5 mg/ Syringe 0.5 mls @ 2 mls/min IV Q8H PRN PRN Reason: Sedation/Anxiety Stop: 06/14/22 13:34 Dexamethasone 6 mg/ Syringe 1.5 mls @ 1 mls/min IV DAILY KANU Stop: 05/18/22 09:02 Last Admin: 05/16/22 08:32 Dose: 1 mls/min Lorazepam (Lorazepam 0.5 Mg Tab) 0.5 mg PO Q8H PRN PRN Reason: Sedation/Anxiety Stop: 06/14/22 13:34 Last Admin: 05/16/22 02:03 Dose: 0.5 mg Magnesium Hydroxide (Magnesium Hydroxide Susp 30 Ml Udc) 30 ml PO Q24H PRN PRN Reason: Constipation Stop: 06/14/22 13:34 Metoclopramide HCl (Metoclopramide Hcl Inj 5 Mg/Ml 2 Ml Vial) 10 mg IV Q6H PRN PRN Reason: Nausea &/or Vomiting Stop: 06/14/22 13:34 Multivitamins/Minerals (Cerovite Adv Formula Tab) 1 tab PO QAM KANU Stop: 06/15/22 08:59 Last Admin: 05/16/22 08:32 Dose: 1 tab Naloxone HCl (Naloxone Hcl 0.4 Mg/1 Ml Vial/Carp) 0.1 mg IV Q5M PRN PRN Reason: Oversedation/Resp depression Stop: 06/14/22 13:34 Ondansetron HCl (Ondansetron Inj 2 Mg/Ml 2 Ml Vial) 4 mg IV Q6H PRN PRN Reason: Nausea &/or Vomiting Stop: 06/14/22 13:34 Last Admin: 05/15/22 13:40 Dose: 4 mg Ondansetron HCl (Ondansetron 4 Mg Od Tab) 4 mg PO Q6H PRN PRN Reason: Nausea Stop: 06/14/22 13:34 Oxycodone HCl (Oxycodone Hcl Ir 5 Mg Tab (Immediate Release)) 5 - 10 mg PO Q4H PRN PRN Reason: Pain & Pre PT Stop: 05/29/22 13:34 Pantoprazole Sodium (Pantoprazole 40 Mg Tab) 40 mg PO [facility] Stop: 06/14/22 20:59 Last Admin: 05/15/22 20:17 Dose: 40 mg Senna/Docusate Sodium (Docusate Sodium/Senna 50/8.6mg Tab) 2 tab PO [facility] Stop: 06/14/22 20:59 Last Admin: 05/15/22 20:17 Dose: 2 tab Simvastatin (Simvastatin 20 Mg Tab) 20 mg PO [facility] Stop: 06/14/22 20:59 Last Admin: 05/15/22 20:17 Dose: 20 mg Sodium Biphosphate/Sodium Phosphate (Sod Phosphate/Sod Biphosphate Enema 132 Ml Btl) 132 ml DE ONE PRN PRN Reason: Constipation Stop: 06/14/22 13:34 Sucralfate (Sucralfate 1 Gm Tab) 1 gm PO QID PRN PRN Reason: Abdominal Pain Stop: 06/14/22 13:34 Tramadol HCl (Tramadol Hcl 50 Mg Tablet) 50 - 100 mg PO Q4H PRN PRN Reason: Moderate-Severe pain & Pre PT Stop: 06/14/22 13:34 Umeclidinium/Vilanterol (Umeclidinium/Vilanterol 62.5/25mcg 7 Puffs/Inhaler) 1 puffs INH QAM [facility] Stop: 06/15/22 08:59 Last Admin: 05/16/22 08:31 Dose: 1 puffs Vitamin D (Cholecalciferol 1,000 Units 25 Mcg Tab) 1,000 units PO QAM [facility] Stop: 06/15/22 08:59 Last Admin: 05/16/22 08:32 Dose: 1,000 units
[2022-05-16] MEDS: DOCUSATE SODIUM/SENNA 50/8.6MG TAB PO SCH (21:54)
[2022-05-16] MEDS: SIMVASTATIN 20 MG TAB PO SCH (21:55)
[2022-05-16] MEDS: PANTOprazole 40 MG TAB PO SCH (21:55)
--- NOTE | 2022-05-17 07:25 | Hospitalist Progress Note ---
Date of Service May 17, 2022 Assessment & Plan (1) Status post lumbar surgery: (2) Neurogenic claudication due to lumbar spinal stenosis: Plan: Post op day# 2 S/P L3-L5 decompression, L4-L5 fusion by Dr Mcdaniel -pain management per ortho -wound management per ortho -PT/OT as appropriate -DVT prophylaxis per ortho -incentive spirometry Acute blood loss anemia, postop vs. dilutional -pre-op Hgb: 12, now 10.5 (stable from yesterday 10.7) -Expected, no need for blood transfusion -monitor H&H (3) Asthma: Plan: No acute exacerbation -Follows with pulmonology in [place] -Continue home inhalers -Albuterol neb prn (4) Hyperlipidemia: Plan: -Continue simvastatin (5) Barretts esophagus: (6) GERD (gastroesophageal reflux disease): Plan: -Continue PPI (7) Renal insufficiency: Plan: 05/15/22 pre-op Cr: 1.44. Unknown prior baseline -Monitor renal functions, avoid nephrotoxic agents when possible - current Cr 1.23 DVT Prophylaxis -SCDs per ortho Disposition per primary service Follows with Dr Yonis Cornell for routine care Thank you for this consultation. We will follow the patient with you during their hospital stay. You can reach a [facility]05 via [employer] Admission and Anticipated Discharge Date Admission Date: May 15, 2022 Subjective Patient seen s/p spinal surgery Currently sitting up in chair, eating breakfast, in no acute distress Denies any fevers, chills, chest pain, shortness of breath, abdominal pain, nausea or vomiting Reports she has been walking in hallway without much difficulty Catheter was removed, and she has been voiding without difficulty. She also had a bowel movement Patient's daughter at the bedside Review of Systems Review of Systems: All systems reviewed & are unremarkable except as noted in Subjective Physical Exam Physical Exam: General: elderly F , in no distress, WDWN Head: normocephalic, atraumatic Eyes: conjunctiva non-injected, anicteric ENT: normal inspection external ears, nose, mucous membranes moist Neck: supple, trachea midline Lungs: clear, no respiratory distress, no wheezing/rhonchi/rales CV: RRR, no murmur, no pretibial edema Abd: normal BS, soft, non-tender Back: surgical dressing dry intact Ext: no calf tenderness; pedal pushes and pulls intact bilaterally, sensation to light touch intact, distal pulses intact Neuro: alert oriented x 3, no focal deficits noted, normal affect Skin: warm, dry Results & Data Results & Data ([facility]) Vital Signs (Past 12 Hours) Vital Signs Temp Pulse Resp BP Pulse Ox O2 Del Method 05/16/22 21:54 36.6 C 66 16 130/65 96 Room Air Laboratory Results 05/16/22 05/16/22 Range/Units 08:48 08:48 WBC 8.32 (4.8-10.8) K/ul RBC 3.53 L (3.93-5.22) M/uL Hgb 10.7 L (12.0-16.0) g/dl Hct 33.4 L (34.1-44.9) % MCV 94.6 (80.0-100.0) fL MCH 30.3 (25.0-34.0) pg MCHC 32.0 (32.0-36.0) g/dL RDW Std Deviation 46.0 (36.4-46.3) fL RDW Coeff of Moon 13.4 (11.5-14.5) % Plt Count 163 (130-400) K/uL MPV 9.8 (9.4-12.3) fL Immature Gran % (Auto) 0.5 % Neut % (Auto) 85.3 % Lymph % (Auto) 9.0 % Todd % (Auto) 5.0 % Eos % (Auto) 0.1 % Baso % (Auto) 0.1 % Neut # (Auto) 7.09 H (1.4-6.5) K/uL Lymph # (Auto) 0.75 L (1.2-3.4) K/uL Todd # (Auto) 0.42 (0.24-0.82) K/uL Eos # (Auto) 0.01 (0-0.50) K/uL Baso # (Auto) 0.01 (0-0.2) K/uL Immature Gran # (Auto) 0.04 H (0.00-0.02) K/uL Sodium 139 (136-145) mmol/L Potassium 4.5 (3.5-5.1) mmol/L Chloride 109 H (98-107) mmol/L Carbon Dioxide 22 (21-32) mmol/L Anion Gap 8 (3-11) BUN 21 (6-23) mg/dl Creatinine 1.39 H (0.6-1.2) mg/dl Est Cr Clr Drug Dosing 27.1 ml/min Est GFR ( Amer) 41.7 ml/min Est GFR (Non-Af Amer) 36.0 ml/min BUN/Creatinine Ratio 15.1 (10-20) Glucose 144 H (70-99(Fasting)) mg/dl Calcium 7.8 L (8.5-10.1) mg/dl Medications Administered Current Inpatient Medications Acetaminophen (Acetaminophen 500 Mg Tab) 1,000 mg PO Q8H PRN PRN Reason: MILD Pain Scale 1,2,3 & Pre PT Stop: 06/14/22 15:59 Last Admin: 05/16/22 16:28 Dose: 1,000 mg Al Hydrox/Mg Hydrox/Simethicone (Aluminum/Magnesium Susp 30 Ml Udc) 30 ml PO Q6H PRN PRN Reason: Dyspepsia Stop: 06/14/22 13:34 Albuterol (Albuterol Hfa 8 Gm Inhaler) 2 puffs INH Q6H PRN PRN Reason: Wheezing Stop: 06/14/22 13:34 Albuterol (Albuterol 0.083% Nebu Soln 3 Ml Vial) 2.5 mg NEB Q6R PRN; Protocol PRN Reason: Shortness Of Breath Or Wheezin Stop: 06/14/22 14:29 Benzonatate (Benzonatate 100 Mg Capsule) 100 mg PO BID PRN PRN Reason: Cough Stop: 06/14/22 13:34 Bisacodyl (Bisacodyl 10 Mg Supp) 10 mg MI DAILY PRN PRN Reason: Constipation Stop: 06/14/22 13:34 Cyanocobalamin (Cyanocobalamin (B-12) 500 Mcg Tablet) 1,000 mcg PO QAM [facility] Stop: 06/15/22 08:59 Last Admin: 05/16/22 08:32 Dose: 1,000 mcg Diphenhydramine HCl (Diphenhydramine Capsule 25 Mg Cap) 25 mg PO Q6H PRN PRN Reason: Allergic Rhinitis/Insomnia Stop: 06/14/22 13:34 Famotidine (Famotidine 20 Mg Tab) 20 mg PO Q12H PRN PRN Reason: Dyspepsia Stop: 06/14/22 13:34 Fluticasone Furoate (Fluticasone Furoate 100mcg 14 Puffs/Inhaler) 1 puffs INH QAM [facility] Stop: 06/15/22 08:59 Last Admin: 05/16/22 08:31 Dose: 1 puffs Hydromorphone HCl (Hydromorphone Inj 0.5 Mg/0.5 Ml Syr) 0.5 mg IV Q3H PRN PRN Reason: MODERATE Pain (Scale 4,5,6) & Pre PT Stop: 05/29/22 13:34 Hydromorphone HCl (Hydromorphone Inj 1 Mg/Ml Syringe) 1 mg IV Q3H PRN PRN Reason: SEVERE Pain (Scale 7,8,9,10) Stop: 05/29/22 13:34 Hydroxyzine HCl (Hydroxyzine Hcl 25 Mg Tab) 25 mg PO Q8H PRN PRN Reason: Anxiety Stop: 06/14/22 13:34 Promethazine HCl 12.5 mg/ (Sodium Chloride) 50.5 mls @ 202 mls/hr IV Q6H PRN PRN Reason: Nausea &/or Vomiting Stop: 06/14/22 13:34 Last Infusion: 05/15/22 17:01 Dose: Infused Lorazepam 0.5 mg/ Syringe 0.5 mls @ 2 mls/min IV Q8H PRN PRN Reason: Sedation/Anxiety Stop: 06/14/22 13:34 Dexamethasone 6 mg/ Syringe 1.5 mls @ 1 mls/min IV DAILY [facility] Stop: 05/18/22 09:02 Last Admin: 05/16/22 08:32 Dose: 1 mls/min Lorazepam (Lorazepam 0.5 Mg Tab) 0.5 mg PO Q8H PRN PRN Reason: Sedation/Anxiety Stop: 06/14/22 13:34 Last Admin: 05/16/22 02:03 Dose: 0.5 mg Magnesium Hydroxide (Magnesium Hydroxide Susp 30 Ml Udc) 30 ml PO Q24H PRN PRN Reason: Constipation Stop: 06/14/22 13:34 Metoclopramide HCl (Metoclopramide Hcl Inj 5 Mg/Ml 2 Ml Vial) 10 mg IV Q6H PRN PRN Reason: Nausea &/or Vomiting Stop: 06/14/22 13:34 Multivitamins/Minerals (Cerovite Adv Formula Tab) [facility] Stop: 06/15/22 08:59 Last Admin: 05/16/22 08:32 Dose: 1 tab Naloxone HCl (Naloxone Hcl 0.4 Mg/1 Ml Vial/Carp) 0.1 mg IV Q5M PRN PRN Reason: Oversedation/Resp depression Stop: 06/14/22 13:34 Ondansetron HCl (Ondansetron Inj 2 Mg/Ml 2 Ml Vial) 4 mg IV Q6H PRN PRN Reason: Nausea &/or Vomiting Stop: 06/14/22 13:34 Last Admin: 05/15/22 13:40 Dose: 4 mg Ondansetron HCl (Ondansetron 4 Mg Od Tab) 4 mg PO Q6H PRN PRN Reason: Nausea Stop: 06/14/22 13:34 Oxycodone HCl (Oxycodone Hcl Ir 5 Mg Tab (Immediate Release)) 5 - 10 mg PO Q4H PRN PRN Reason: Pain & Pre PT Stop: 05/29/22 13:34 Pantoprazole Sodium (Pantoprazole 40 Mg Tab) 40 mg PO [facility] Stop: 06/14/22 20:59 Last Admin: 05/16/22 21:55 Dose: 40 mg Senna/Docusate Sodium (Docusate Sodium/Senna 50/8.6mg Tab) 2 tab PO [facility] Stop: 06/14/22 20:59 Last Admin: 05/16/22 21:54 Dose: Not Given Simvastatin (Simvastatin 20 Mg Tab) 20 mg PO [facility] Stop: 06/14/22 20:59 Last Admin: 05/16/22 21:55 Dose: 20 mg Sodium Biphosphate/Sodium Phosphate (Sod Phosphate/Sod Biphosphate Enema 132 Ml Btl) 132 ml MI ONE PRN PRN Reason: Constipation Stop: 06/14/22 13:34 Sucralfate (Sucralfate 1 Gm Tab) 1 gm PO QID PRN PRN Reason: Abdominal Pain Stop: 06/14/22 13:34 Tramadol HCl (Tramadol Hcl 50 Mg Tablet) 50 - 100 mg PO Q4H PRN PRN Reason: Moderate-Severe pain & Pre PT Stop: 06/14/22 13:34 Umeclidinium/Vilanterol (Umeclidinium/Vilanterol 62.5/25mcg 7 Puffs/Inhaler) 1 puffs INH QAM [facility] Stop: 06/15/22 08:59 Last Admin: 05/16/22 08:31 Dose: 1 puffs Vitamin D (Cholecalciferol 1,000 Units 25 Mcg Tab) 1,000 units PO QAM [facility] Stop: 06/15/22 08:59 Last Admin: 05/16/22 08:32 Dose: 1,000 units
[2022-05-17 07:57] LABS: Hematocrit (blood only) 32.2 % (34.1-44.9); Hemoglobin 10.5 g/dl (12.0-16.0); Mean Corpuscular Hemoglobin 30.2 pg (25.0-34.0); Mean Corpuscular Hgb Conc 32.6 g/dL (32.0-36.0); Mean Corpuscular Volume 92.5 fL (80.0-100.0); Mean Platelet Volume 9.5 fL (9.4-12.3); Platelet Count 155 K/uL (130-400); RDW Coefficient of Variation 13.9 % (11.5-14.5); RDW Standard Deviation 46.8 fL (36.4-46.3); Red Blood Count 3.48 M/uL (3.93-5.22); White Blood Count 7.41 K/ul (4.8-10.8)
[2022-05-17 08:16] LABS: BUN Creatinine Ratio 17.9 (10-20); Calcium 8.1 mg/dl (8.5-10.1); Creatinine Clr Calc Pharmacy 30.6 ml/min; Est GFR (African American) 48.3 ml/min; Est GFR (Non-African American) 41.7 ml/min; Potassium 4.2 mmol/L (3.5-5.1)
[2022-05-17] MEDS: ACETAMINOPHEN 500 MG TAB PO PRN (09:05)
[2022-05-17] MEDS: dexAMETHasone 6 MG in SYRINGE 0 ML IV SCH (09:06)
[2022-05-17] MEDS: FLUTICASONE FUROATE 100MCG 14 PUFFS/INHALER INH SCH (09:08)
[2022-05-17] MEDS: CYANOCOBALAMIN (B-12) 500 MCG TABLET PO SCH (09:08)
[2022-05-17] MEDS: CHOLECALCIFEROL 1,000 UNITS 25 MCG TAB PO SCH (09:08)
[2022-05-17] MEDS: UMECLIDINIUM/VILANTEROL 62.5/25MCG 7 PUFFS/INHALER INH SCH (09:08)
[2022-05-17] MEDS: CEROVITE ADV FORMULA TAB PO SCH (09:08)
--- NOTE | 2022-05-17 09:49 | Discharge Summary ---
Date of Service May 17, 2022 Admission HPI Per Admitting Provider This is a 68-year-old female presents to clinic with back and leg pain. Failing course of nonoperative care she is here for surgical invention. Principal Diagnosis Lumbar spinal stenosis with neurogenic claudication Discharge Data Allergies Allergy/AdvReac Type Severity Reaction Status Date / Time morphine Allergy Unknown IN ANOTHER Verified 05/15/22 07:48 WORLD cefuroxime [From Ceftin] AdvReac Unknown DIARRHEA , Verified 05/15/22 07:48 NAUSEA moxifloxacin [From Avelox] AdvReac Unknown upset Verified 05/15/22 07:48 stomach/diarrhea Consultations 05/15/22 13:35 Consult Hospitalist Routine Procedures Performed Operation Date: 05/15/22 09:35 Actual Procedures p L4-L5 Decompression Fusion, Spinal Cord Monitoring(Not Applicable) - Boby Mcdaniel DO Ordered Studies 05/15/22 07:45 FL lumbar spine 2-3V Routine Hospital Course (1) Neurogenic claudication due to lumbar spinal stenosis: Patient with lumbar decompression fusion tolerated this well was taken to orthopedic for postoperative. Postop day 1 she was up and ambulating progressed to postop day #2. ARIK drain decreasing appropriately. Excellent strength testing. Separately discharged home. Discharge orders instructions from the chart for further review. Total Time Total Time Spent Total Time Spent (In Minutes): 20 minutes Discharge Plan Discharge Items Patient Disposition: Home - Self-Care Reason For Visit: Spinal Stenosis, Lumbosacral Region Discharge Diagnosis: Lumbar spinal stenosis Activity: As commented below Non-emergency contact: Primary Care Provider Call non-emergency contact if: you have any medication questions Follow-up/Referrals: Yonis Cornell [Primary Care Provider] - Diet: Regular Addtl Attending Provider Instructions: ACTIVITY RECOMMENDATIONS: SELF CARE INSTRUCTIONS AFTER THORACIC/LUMBAR FUSIONS 1. You may walk to your tolerance. It is good exercise for your legs and back. Expect some back and intermittent leg aches and pains. 2. You may perform "counter-top" level activities (make a sandwich, sofi with a project, etc.). 3. No bending or lifting of more than 10 pounds or back twisting of any nature (roll like a log when turning in bed). 4. You may ride in a car for 20-30 minutes at a time. No driving until after your first visit with your doctor. 5. Frequent changes of position and restricting sitting to 30 minutes at a time will help limit the amount of back spasms and stiffness you may experience. 6. You may discontinue the use of ambulatory aids (cane, crutches, etc.) once your strength and confidence allow. 7. You may tongue and groove machine setter the shower and let water strike your incision when you arrive home at least once daily. Do not take a tub bath, sit in a hot tub or go into a swimming pool until after your first recheck in the office. SPECIAL CARE INSTRUCTIONS: VERY IMPORTANT TO READ AND REVIEW A. Your surgical incision has been closed with a cosmetic suture under the skin that will dissolve in about 6 weeks. In 14 days, you can use a pair of clean scissors and cut the suture that is left outside of the skin at the ends of your incision. 1. The small skin tapes can be removed 7 days after surgery if they have not fallen off by that point. 2. You may keep the wound open to air as much as possible to promote healing after post-op day number 5 unless told otherwise by your doctor. 3. If you think the wound looks like it is becoming infected (redness or worsening drainage) and/or you are experiencing fever, chill or worsening back pain and muscle spasms, contact the office so that we may evaluate you as soon as possible. B. Complications are uncommon, but please contact us if you have any signs or symptoms of: 1. wound infection (fever higher than 102.5 degrees F, redness, separation of wound, drainage, or increasing pain from the incision) 2. blood clots in legs (pain, swelling, redness and warmth in legs) 3. urinary tract infection (fever higher than 102.5 degrees F, burning upon urination or increased frequency of urination) 4. nerve problems (inability to walk on your toes or heels, numbness, loss of bowel or bladder control) 5. any other symptoms that concern you C. Please call the office at if you have any concerns or questions about your operation or recovery. D. No smoking! Smoking drastically decreases the chance of a solid fusion. E. Do not take any anti-inflammatory medications (Indocin, Advil, Motrin, Aspirin, Naprosyn, etc.) as these may inhibit the chance of a solid fusion. Tylenol is okay to take for pain. MANAGING PAIN AFTER SPINAL SURGERY 1. Narcotic medication is intended for short-term use and will be provided for surgical pain. Surgical pain usually lasts for a period of 4-6 weeks. Narcotic medication includes Percocet, Vicodin, Darvocet, Tylenol #3 or Lortab. 2. Longer-term pain is more appropriately treated with non-narcotic medication such as Tylenol ES. 3. Muscle spasm is not appropriately treated with narcotics. Muscle relaxers such as Soma, Flexeril or Skelaxin can be used along with Tylenol ES. 4. Remember that we all live with some "aches and pains". This is not unusual or uncommon after an injury or as we get older. a. Back pain is expected and may include muscle spasms for 4 to 6 weeks after surgery. The pain should gradually improve. If the pain worsens for no apparent reason, please contact the office. b. Intermittent leg pain may also be experienced and should not be concerned about unless it worsens for no apparent reason. If so, please contact the office. 5. We will provide appropriate medication within the normal guidelines of their prescribed use. We will also be very cautious and aware of potential abuse and extended duration of patients' medication needs. a. Pain medications are for your comfort and to assist with sleep and rest so that the tissue can heal. They are not provided in order to return to normal activity and should not be used through the day. To do so or worsening pain at night can result from ongoing tissue damage and d evelopment of tolerance to the prescribed medicine. 6. Please allow 2-3 days to process refills. Prescriptions will not be mailed but must be picked up at the office. FOLLOW UP VISIT: Keep your scheduled follow-up appointment. Any questions, please call the office at . Pending Studies at Discharge: No Stand-Alone Forms: [facility], Smoking Cessation Medications and DC Order Prescriptions: New oxycodone 5 mg tablet 5 mg PO Q6H PRN (Reason: pain, severe) Qty: 30 0RF tramadol 50 mg tablet 50 mg PO Q6H PRN (Reason: pain, moderate) Qty: 30 0RF Continued albuterol sulfate 90 mcg/actuation HFA aerosol inhaler 2 puff inhalation Q6H PRN (Reason: Wheezing) alendronate 70 mg tablet 70 mg PO WK benzonatate 100 mg capsule 100 mg PO BID PRN (Reason: Cough) cyanocobalamin (vitamin B-12) 1,000 mcg capsule 1,000 mcg PO QAM [id number] Tablet 1 tab PO QAM pantoprazole 40 mg tablet,delayed release (DR/EC) 40 mg PO HS simvastatin 20 mg tablet 20 mg PO HS sucralfate [Carafate] 1 gram tablet 1 g PO QID PRN (Reason: Abdominal Pain) cholecalciferol (vitamin D3) 25 mcg (1,000 unit) capsule 25 mcg PO QAM albuterol sulfate 2.5 mg /3 mL (0.083 %) solution for nebulization 2.5 mg inhalation Q4H PRN (Reason: Wheezing) acetaminophen 500 mg Tablet 1,000 mg PO Q6H PRN (Reason: Pain) Trelegy Ellipta 100-62.5-25 mcg Blister With Device 1 inh INHALATION QAM Discharge Orders: Discharge Order (Routine); Ordered 05/17/22 Ordered By: Boby Mcdaniel Admission Data Admit Date/Time: 05/15/22 11:08 Attending Provider: Boby Mcdaniel Admit Provider: Boby Mcdaniel Primary Care Provider: Yonis Cornell Other Providers: Evelia Merino ; Olu Diana
== END 2022-05-17 12:12 | disposition home or self-care (01) | DRG 454 ==
LOC: ASU 07:30 → 3W 11:08